=== PATIENT | male | born 1975 | race American Indian/Alaskan Native ===

== ENCOUNTER 2018-03-21 10:43 | Emergency (ER) | payer BC ==
--- NOTE | 2018-03-21 12:03 | Emergency Department Report ---
Blank Doc - Documentation Documentation: Patient is a 42-year-old -[place] male who is presenting with right arm swelling and discomfort. Patient states that in the bicep region he is has a palpable cord present with some discomfort. Patient has a history of DVT in the past. There is no longer on Coumadin. Patient denies any chest pain or shortness of breath. Ultrasound Dopplers been ordered to rule out deep vein thrombosis.
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
[2018-03-21] MEDS ORDERED: NORCO 5/325 PO ONE (12:58)
[2018-03-21] MEDS ORDERED: MOTRIN PO ONE (12:58)
[2018-03-21 13:12] VITALS: BP 128/95
--- NOTE | 2018-03-22 10:23 | Vascular Lab Report ---
RIGHT UPPER EXTREMITY VENOUS DUPLEX: REASON FOR EXAM: Pain and swelling of the right upper extremity COMMENTS ON THE RIGHT: Superficial venous thrombosis is seen in the cephalic vein and some sidebranches in the mid bicep.. The remaining veins visualized are freely compressible without evidence of internal echogenicity. Spontaneous and phasic flow is present proximally. COMMENTS ON THE LEFT: A limited study of the jugular and subclavian veins shows no evidence of thrombus. IMPRESSION: No acute deep venous thrombosis in the right upper extremity. Acute superficial venous thrombosis in the cephalic vein in the upper arm which includes some adjacent branches.
== END 2018-03-21 13:12 | disposition home or self-care (01) ==
LOC: ED 10:43
DX: I80.8 Phlebitis and thrombophlebitis of other sites (principal); Z86.718 Personal history of other venous thrombosis and embolism; Z79.82 Long term (current) use of aspirin